=== PATIENT | female | born 1945 | race Caucasian/White ===

== ENCOUNTER → 2016-10-11 | Outpatient (CLI) | payer OTHER ==
[~2016-10-11] MED LIST: CALC600T9 PO; OXYB5TAB74 PO; PRED1SUS3 OPL; SIMV20TA2 PO
[2016-10-11 09:43] LABS: BASO % 0.2 %; BASO ABS # 0.01 K/uL (0-0.2); COMPLETE YES; EOS % 1.6 %; HEMATOCRIT 40.6 % (37-47); IG% 0.2 %; LYMPH % 23.9 %; LYMPH ABS # 1.02 K/uL (1.2-3.4); MEAN CELL VOLUME 88.6 fL (80-100); MEAN CORPUSCULAR HEMOGLOBIN 30.3 pg (25-34); MEAN CORPUSCULAR HGB CONC 34.2 g/dl (32-36); MEAN PLATELET VOLUME 9.6 fL (7.4-10.4); MONO % 10.3 %; NEUT % 63.8 %; PLATELET COUNT 218 K/uL (130-400); RED BLOOD COUNT 4.58 M/uL (4.2-5.4); WHITE BLOOD COUNT 4.26 K/uL (4.8-10.8)
[2016-10-11 09:50] LABS: ALT/SGPT 21 U/L (12-78); BLOOD UREA NITROGEN 18 mg/dl (7-18); CALCIUM 8.8 mg/dl (8.5-10.1); CARBON DIOXIDE 26 mmol/L (21-32); CHLORIDE 110 mmol/L (98-107); CHOLESTEROL 172 mg/dl (0-200); GLUCOSE 93 mg/dl (70-99); POTASSIUM 3.5 mmol/L (3.5-5.1); SODIUM 144 mmol/L (136-145)
[2016-10-11 09:53] LABS: ALB/GLOB RATIO 1.2 (0.9-2); ALKALINE PHOSPHATASE 78 U/L (45-117); AST/SGOT 19 U/L (15-37); CHOLESTEROL/HDL RATIO 2.8; HDL CHOLESTEROL 62 mg/dl; LDL CHOLESTEROL CALCULATED 88 mg/dl; TRIGLYCERIDES 109 mg/dl (0-150); VERY LOW DENSITY LIPOPROT CALC 22 mg/dl
== END | disposition home or self-care (01) ==
LOC: C.LAB1850 08:13
PROVIDERS: ATTEND Internal Medicine
DX: Z11.59 Encounter for screening for other viral diseases (principal); G62.9 Polyneuropathy, unspecified; E78.5 Hyperlipidemia, unspecified

== ENCOUNTER → 2017-06-25 | Day surgery (SDC) | payer OTHER ==
[2017-06-08 10:05] VITALS: BMI 28.0
[~2017-06-25] VITALS: Ht 167.6 cm; Wt 80.5 kg
[~2017-06-25] MED LIST changes: +ATROPINE SULFATE 0.1 MG/ML 5ML SYR IV PRN; +DTR/5 PO; +EpHEDrine SULFATE INJ 50 MG/ML AMP IV PRN; +LIDOCAINE HCL 2% 2 ML VIAL (20MG/ML) ONE; -OXYB5TAB74 PO; -PRED1SUS3 OPL; +PROPOFOL IV EMULSION 10 MG/ML 20 ML VIAL IV ONE; +SODIUM CHLORIDE 0.9% 500ML 500 ML IV ONE
[2017-06-25 12:04] VITALS: Ht 167.6 cm; Wt 80.5 kg
[2017-06-25 12:08] VITALS: TEMP 36.8
--- NOTE | 2017-06-25 12:51 | Endo History and Physical ---
History & Physical Date of Service: Jun 25, 2017. Chief Complaint: SCREENING Referring Physician: DR SHARP History of Present Illness 71 yo CF who presents for screening colonoscopy. Past Medical History High Cholesterol Past Surgical History Hx Cardiac Surgery: No Hx Internal Defibrillator: No Hx Pacemaker: No Hx Abdominal Surgery: No Hx of Implantable Prosthesis: No Hx Post-Op Nausea and Vomiting: No Hx Cancer Surgery: No Hx Thoracic Surgery: No Hx Orthopedic: No Hx Urinary Tract Surgery: No Family History None Social History Smoking Status: Never Smoker Hx Substance Use: No Hx Alcohol Use: No Allergies Coded Allergies: Latex1 -Allergic Contact Dermititis (Verified Allergy, Unknown, NOSE ITCHING ON CONTACT WITH LATEX GLOVES AT DENTIST, 06/25/17) per pt allergy is questionable had some itching around her nose while at a dental appt. and was told it was a latex allergy Tramadol (Verified Adverse Reaction, Unknown, DIZZY, 06/25/17) Current Medications Reported Home Medications Medications Dose Route/Sig Max Daily Dose Days Date Category Calcium + D (Calcium Carbonate-Vitamin D) 1 Tab Tab PO QAM 03/02/15 Reported Ditropan (Oxybutynin Chloride) 5 Mg Tab 5 Mg PO BID 03/02/15 Reported Zocor (Simvastatin) 20 Mg Tab 20 Mg PO QPM 03/02/15 Reported Vital Signs Weight (Kilograms): 80.45 Height (Feet): 5 Height (Inches): 6 Date Time Temp Pulse Resp B/P (MAP) Pulse Ox O2 Delivery O2 Flow Rate FiO2 06/25/17 12:08 36.8 81 18 151/90 (110) 95 Room Air Physical Exam General Appearance: WD/WN, no apparent distress Respiratory/Chest: Auscultation: breath sounds normal Cardiovascular: Heart Auscultation: RRR Abdomen: Bowel Sounds: normal Inspection & Palpation: soft, non-distended, no tenderness, guarding & rebound Assessment and Plan Assessment: 71 yo CF who presents for screening colonoscopy. Plan: Proceed with colonoscopy.
--- NOTE | 2017-06-25 13:31 | GI REPORT ---
Procedure Date: 06/25/2017 12:25 PM Procedure: Colonoscopy Indications: Screening for colorectal malignant neoplasm Medicines: Monitored Anesthesia Care Complications: No immediate complications. Estimated Blood Loss: Estimated blood loss: none. Procedure: Pre-Anesthesia Assessment: - Prior to the procedure, a History and Physical was performed, and patient medications and allergies were reviewed. The patient's tolerance of previous anesthesia was also reviewed. The risks and benefits of the procedure and the sedation options and risks were discussed with the patient. All questions were answered, and informed consent was obtained. Prior Anticoagulants: The patient has taken no previous anticoagulant or antiplatelet agents. ASA Grade Assessment: II - A patient with mild systemic disease. After reviewing the risks and benefits, the patient was deemed in satisfactory condition to undergo the procedure. After I obtained informed consent, the scope was passed under direct vision. Throughout the procedure, the patient's blood pressure, pulse, and oxygen saturations were monitored continuously. The scope was introduced through the anus and advanced to the terminal ileum. The scope was introduced through the and advanced to. The colonoscopy was performed with moderate difficulty due to restricted mobility of the colon, a redundant colon and significant looping. Successful completion of the procedure was aided by changing the patient to a supine position and withdrawing the scope and replacing with the pediatric colonoscope. The patient tolerated the procedure well. The quality of the bowel preparation was good. The terminal ileum, ileocecal valve, appendiceal orifice, and rectum were photographed. Findings: The perianal and digital rectal examinations were normal. Multiple small-mouthed diverticula were found in the sigmoid colon. Non-bleeding internal hemorrhoids were found during retroflexion. The hemorrhoids were small. Impression: - Diverticulosis in the sigmoid colon. - Non-bleeding internal hemorrhoids. - No specimens collected. Recommendation: - Resume previous diet. - Continue present medications. - No repeat colonoscopy due to age and the absence of advanced adenomas. - Return to primary care physician as previously scheduled. Sabas Eden, DO 06/25/2017 1:31:13 PM This report has been signed electronically. Note Initiated On: 06/25/2017 12:25 PM I attest to the content of the Intraoperative Record and orders documented therein, exceptions below
--- NOTE | 2017-06-25 13:45 | Anesthesiology Progress Note ---
Anesthesia Post Op Note Date & Time Jun 25, 2017 at 13:45 Vital Signs Pain Intensity: 0 Vital Signs Past 12 Hours Date Time Temp Pulse Resp B/P (MAP) Pulse Ox O2 Delivery O2 Flow Rate FiO2 06/25/17 13:42 73 20 105/80 (88) 96 Room Air 06/25/17 13:37 76 20 99/55 (70) 93 Room Air 06/25/17 13:31 81 18 96/59 (71) 93 Room Air 06/25/17 12:08 36.8 81 18 151/90 (110) 95 Room Air Notes Mental Status: alert / awake / arousable, participated in evaluation Pt Amnestic to Procedure: Yes Nausea / Vomiting: adequately controlled Pain: adequately controlled Airway Patency, RR, SpO2: stable & adequate BP & HR: stable & adequate Hydration State: stable & adequate Anesthetic Complications: no major complications apparent
[2017-06-25 13:51] VITALS: BP 100/72; PULSE 71; O2SAT 97
--- NOTE | 2017-06-25 13:59 | Discharge Instructions ---
Endoscopy Patient Instructions Date / Procedure(s) Performed Jun 25, 2017. Colonoscopy Allergy Information Coded Allergies: Latex1 -Allergic Contact Dermititis (Verified Allergy, Unknown, NOSE ITCHING ON CONTACT WITH LATEX GLOVES AT DENTIST, 06/25/17) per pt allergy is questionable had some itching around her nose while at a dental appt. and was told it was a latex allergy Tramadol (Verified Adverse Reaction, Unknown, DIZZY, 06/25/17) Discharge Date / Findings Jun 25, 2017. Diverticulosis Internal hemorrhoids Medication Instructions OK to resume all medications today as prescribed Reported Home Medications Medications Dose Route/Sig Max Daily Dose Days Date Category Calcium + D (Calcium Carbonate-Vitamin D) 1 Tab Tab PO QAM 03/02/15 Reported Ditropan (Oxybutynin Chloride) 5 Mg Tab 5 Mg PO BID 03/02/15 Reported Zocor (Simvastatin) 20 Mg Tab 20 Mg PO QPM 03/02/15 Reported Provider Instructions Activity Restrictions - No exercising or heavy lifting for 24 hours. - Do not drink alcohol the day of the procedure. - Do not drive a car or operate machinery until the day after the procedure. - Do not make any important decisions or sign important papers in 24 hours after the procedure. Following Day: - Return to full activity which may include returning to work/school. Diet Start your diet with liquids and light foods (jello, soup, juice, toast). Then eat your usual diet if not nauseated. Treatment For Common After Affects For mild abdominal pain, bloating, or excessive gas: - Rest - Eat lightly - Lie on right side Follow-Up Information Follow-up with DR SHARP as scheduled Anesthesia Information What You Should Know You have had a procedure that required some medicine to reduce anxiety and discomfort. This treatment is called moderate sedation. After receiving the treatment, you may be sleepy, but you will be able to breathe on your own. The effects of the treatment may last for several hours. Follow these instructions along with Activity/Diet recommendations noted above: * Do NOT do anything where dizziness or clumsiness would be dangerous. * Rest quietly at home today, then you can be up and about tomorrow. * Have a responsible person stay with you the rest of today. * You may have had an I.V. today. If so, you may take the dressing off later today. Recommendations Call your doctor if: * Trouble breathing * Continuous vomiting for more than 24 hours * Temperature above 101 degrees * Severe abdominal pain or bloating * Pain not relieved by pain medicine ordered * There is increased drainage or redness from any incision * A large amount of rectal bleeding greater than 2-3 tablespoons. (If you had a polyp/s removed or have hemorrhoids, a small amount of blood - from the rectum is to be expected.) * You have any unanswered questions or concerns. IN THE EVENT OF A SERIOUS EMERGENCY, GO TO THE NEAREST EMERGENCY ROOM Your discharge instructions were prepared by provider Sabas Eden. Patient Instructions Signature Page Manjit Haque Patient (or Guardian) Signature/Date: I have read and understand the instructions given to me by my caregivers. Caregiver/RN/Doctor Signature/Date: The above-named patient and/or guardian has received patient instructions on this date. + Original Patient Signature Page (only) stays with chart. Please make copy for patient.
== END | disposition home or self-care (01) ==
LOC: C.GI 11:04
PROVIDERS: ATTEND Internal Medicine
DX: Z12.11 Encounter for screening for malignant neoplasm of colon (principal); E78.00 Pure hypercholesterolemia, unspecified; K57.30 Diverticulosis of large intestine without perforation or abscess without bleeding; K64.8 Other hemorrhoids; Z91.040 Latex allergy status; Z88.8 Allergy status to other drugs, medicaments and biological substances

== ENCOUNTER 2021-04-26 08:17 | Inpatient (IN) ==
--- NOTE | 2021-04-26 08:40 | Emergency Department Note ---
Impression & Plan Acute lumbar radiculopathy, Low back pain ED Provider Note NAME: LEVON GILBERT AGE: 75 SEX: F : 1945 ARRIVES VIA: Walk-In INFORMANT: Patient, ED PROVIDER(S): Frank Ireland DO CHIEF COMPLAINT: Back pain HPI: The patient is a 75-year-old female who presented to the emergency department for an evaluation of back pain. The patient noticed back pain over the last few weeks. She was seen in our emergency department recently and diagnosed with lumbar disc disease. She was felt to have a surgical finding on MRI and was followed up with the orthopedic spinal specialist. The patient has been having problems scheduling her surgery. She started noticing worsening pain and pain radiating to her right leg. This became much worse over the last 24 hours. She presented to the emergency department today for further e valuation. She did take a pain pill prior to coming to the emergency department. She states her pain is somewhat improved. She states pain worsens when she tries ambulate. She notices specific pain going into her right leg and weakness in her right foot. She denies having any numbness in the saddle region. She notices no bowel or bladder incontinence. She denies having any abdominal pain or chest pain. The patient states that she has been compliant with her usual medications. She is not on any blood thinners. She states the pain is moderate at this time. She states that is somewhat relieved with lying still. ROS: See above HPI for pertinent positives & negatives. A total of 10 systems reviewed and were otherwise negative. PAST MEDICAL HISTORY: See Below PAST SURGICAL HISTORY: See Below FAMILY HISTORY: See Below SOCIAL HISTORY: See Below HOME MEDICATIONS: See Below ALLERGIES: See Below VITALS: See Below PHYSICAL EXAMINATION: GENERAL: The patient is awake and alert. She is somewhat anxious appearing and uncomfortable. EYES: The conjunctivae are clear. The pupils are round and reactive. EARS, NOSE, MOUTH AND THROAT: The nose is without any evidence of any deformity. NECK: The neck is nontender and supple. RESPIRATORY: Normal respiratory effort is noted there is no evidence of wheezing rhonchi or rales CARDIOVASCULAR: Regular rate and rhythm noted there no murmurs rubs or gallops normal S1 normal S2. GASTROINTESTINAL: The abdomen is soft. Abdomen is nontender. BACK: No midline tenderness was appreciated. Range of motion appears intact but was painful especially with flexion and extension of the lumbar spine. MUSCULOSKELETAL/EXTREMITIES: There is no evidence of gross deformity full range of motion is noted in the hips and shoulders. SKIN: There is no obvious evidence of any rash. There are no petechiae, pallor or cyanosis noted. NEUROLOGIC: Patient is awake alert and oriented x3 strength is symmetric patellar reflexes are 2+ bilaterally. Achilles tendon reflexes are 1+ bilaterally. Great toe raise was asymmetric with diminished toe raise noted in the right great toe. MEDICAL DECISION MAKING: The patient is a 75-year-old female who presented to the emergency department for an evaluation of back pain. The patient has known back pain which is caused by lumbar disc disease. She started having worsening symptoms. She was scheduled to have evaluation and possible surgical intervention by her primary orthopedic spinal specialist. She was failing outpatient therapy. She presented to the emergency department because of worsening symptoms. I discussed her case with her primary orthopedic spinal specialist. She was felt to be a good candidate for inpatient management and then further evaluation for surgical intervention while in the hospital. The patient was agreeable with this plan. Triage Nursing notes reviewed. Prior medical records reviewed Vital Signs: reviewed and remarkable for no significant abnormalities Differential diagnosis: Musculoskeletal, disc herniation, fracture, metastatic disease, cord compression, discitis, sciatica, cauda equina, infection, aortic disease, renal colic, gastrointestinal, as well as other pathologies. ER treatment provided: See below Diagnostics interpreted by me: ECG: none Laboratory studies: As stated above and show below. Imaging studies: See below Consultation(s): I discussed this case with Dr. Stone who is the patient's primary orthopedic spinal specialist. Past Med/Surg History Medical History (Updated 04/27/21 @ 10:31 by Denise Rodríguez PA-C) Arthritis Depression Eczema Hx of fracture of ankle (~2013) Hyperlipidemia Lumbar radiculopathy Mild cervical dysplasia Neuropathy Polyneuropathy Spinal stenosis Stress incontinence Surgical History History of cataract surgery RT/LEFT History of tooth extraction Hx of colonoscopy Family History Daughter Anxiety Mother Osteoporosis Dementia Father Diabetes Grandfather (Maternal) Osteoporosis Other Breast cancer Myocardial infarction No family history of adverse response to anesthesia Denies family history of Ovarian cancer Colorectal cancer Social History Smoking Status: Never smoker Second Hand Exposure: No; Hx Alcohol Use: Yes Alcohol type: wine Hx Substance Use: No Preferred Language: Malawian Communication Ability: Effective Sealer Aircraft Required: No Beliefs That Will Affect Care: None marital status: Single Current Living Situation: Alone Current Living Situation Comment: Since Mar, living with friend, Julian, for convenience of 1 floor home current occupational status: retired Other Information That Helps Us Care for You: No Feels Safe at Home: Yes Safety Concerns: Feels Safe At This Time Dental Care, Regularly: Yes Physical Activity Frequency: 1-2 Times per Week Seatbelt Use: always Sunscreen Use: Yes Assistive Devices: Walker Allergies Allergies Allergy/AdvReac Type Severity Reaction Status Date / Time latex Allergy Mild NOSE Verified 04/26/21 09:21 ITCHING ON CONTACT WITH LATEX GLOVES AT DENTIST tramadol Allergy Mild DIZZY Verified 04/26/21 09:21 Home Meds Home Medications Medication Instructions Recorded Confirmed calcium carbonate 500 mg calcium 500 mg PO QAM tab 10/24/18 04/26/21 (1,250 mg) tablet ibuprofen 200 mg tablet 200 mg PO Q6H PRN 04/26/21 04/26/21 simvastatin 20 mg tablet (Zocor) 20 mg PO HS 04/26/21 04/26/21 Previous Rx's Medication Instructions Recorded oxybutynin chloride 5 mg tablet 5 mg PO BID #180 tab 11/02/20 hydrocodone 5 mg-acetaminophen 325 1 tab PO Q6H PRN #30 tab 04/18/21 mg tablet Results & Data (ED) Vital Signs Vital Signs - 24 hr 04/26/21 08:22 04/26/21 08:57 04/26/21 10:00 Temperature 36.8 C Temperature Source Temporal Artery Scan Pulse Rate 94 H Pulse Rate [Right Finger] 87 Pulse Rhythm [Right Finger] Regular Pulse Strength [Right Finger] Normal Respiratory Rate 18 18 Respiratory Effort / Characteristics Non-Labored Spontaneous Non-Labored Spontaneous Respiratory Depth Normal Normal Respiratory Pattern Regular Blood Pressure 155/87 H Blood Pressure [Right Arm] 148/79 H Blood Pressure Mean 109 Blood Pressure Mean [Right Arm] 102 Pulse Oximetry 98 98 Oxygen Delivery Method Room Air Room Air Room Air Sepsis Recent Fever Within 48 Hours No Sepsis New/Unexplained Change in Mental Status No Sepsis Action Taken by Nursing No Action Required Home Medications Current Medication List: was personally reviewed by me Laboratory Data Attestation: I reviewed the patient's lab results. Result diagrams: 04/26/21 08:53 04/26/21 08:53 Lab Results 04/26/21 04/26/21 04/26/21 Range/Units 08:53 08:53 08:53 WBC 5.95 (4.8-10.8) K/uL RBC 4.49 (4.2-5.4) M/uL Hgb 13.8 (12.0-16.0) g/dL Hct 40.2 (37-47) % MCV 89.5 (80-100) fL MCH 30.7 (25-34) pg MCHC 34.3 (32-36) g/dL RDW Std Deviation 47.1 H (36.4-46.3) fL RDW Coeff of Amanda 14.3 (11.5-14.5) % Plt Count 257 (130-400) K/uL MPV 9.2 (7.4-10.4) fL Immature Gran % (Auto) 0.2 % Neut % (Auto) 70.4 % Lymph % (Auto) 15.1 % Allen % (Auto) 12.1 % Eos % (Auto) 2.0 % Baso % (Auto) 0.2 % Neut # (Auto) 4.19 (1.4-6.5) K/uL Lymph # (Auto) 0.90 L (1.2-3.4) K/uL Allen # (Auto) 0.72 H (0.11-0.59) K/uL Eos # (Auto) 0.12 (0-0.5) K/uL Baso # (Auto) 0.01 (0-0.2) K/uL Immature Gran # (Auto) 0.01 (0.00-0.02) K/uL PT 9.8 (9.0-12.0) Seconds INR 1.0 (0.9-1.1) APTT 24.7 (21.0-31.0) Seconds PTT Ratio 0.9 Sodium 137 (136-145) mmol/L Potassium 3.7 (3.5-5.1) mmol/L Chloride 106 (98-107) mmol/L Carbon Dioxide 25 (21-32) mmol/L Anion Gap 6.0 (3-11) BUN 20 H (7-18) mg/dl Creatinine 0.95 (0.6-1.2) mg/dl Est Cr Clr Drug Dosing Not Reportable Est GFR ( Amer) 68.9 ml/min Est GFR (Non-Af Amer) 59.4 ml/min BUN/Creatinine Ratio 21.0 H (10-20) Glucose 107 H (70-99) mg/dl Calcium 9.4 (8.5-10.1) mg/dl Total Bilirubin 0.5 (0.2-1) mg/dl AST 15 (15-37) U/L ALT 18 (12-78) Alkaline Phosphatase 96 (45-117) U/L Total Protein 6.6 (6.4-8.2) gm/dl Albumin 3.4 (3.4-5.0) gm/dl Globulin 3.2 (2.5-4.0) gm/dl Albumin/Globulin Ratio 1.1 (0.9-2) Lipase 93 (73-393) U/L SARS-CoV-2, RNA, NAAT (NEGATIVE) 04/26/21 Range/Units 08:53 WBC (4.8-10.8) K/uL RBC (4.2-5.4) M/uL Hgb (12.0-16.0) g/dL Hct (37-47) % MCV (80-100) fL MCH (25-34) pg MCHC (32-36) g/dL RDW Std Deviation (36.4-46.3) fL RDW Coeff of Amanda (11.5-14.5) % Plt Count (130-400) K/uL MPV (7.4-10.4) fL Immature Gran % (Auto) % Neut % (Auto) % Lymph % (Auto) % Allen % (Auto) % Eos % (Auto) % Baso % (Auto) % Neut # (Auto) (1.4-6.5) K/uL Lymph # (Auto) (1.2-3.4) K/uL Allen # (Auto) (0.11-0.59) K/uL Eos # (Auto) (0-0.5) K/uL Baso # (Auto) (0-0.2) K/uL Immature Gran # (Auto) (0.00-0.02) K/uL PT (9.0-12.0) Seconds INR (0.9-1.1) APTT (21.0-31.0) Seconds PTT Ratio Sodium (136-145) mmol/L Potassium (3.5-5.1) mmol/L Chloride (98-107) mmol/L Carbon Dioxide (21-32) mmol/L Anion Gap (3-11) BUN (7-18) mg/dl Creatinine (0.6-1.2) mg/dl Est Cr Clr Drug Dosing Est GFR ( Amer) ml/min Est GFR (Non-Af Amer) ml/min BUN/Creatinine Ratio (10-20) Glucose (70-99) mg/dl Calcium (8.5-10.1) mg/dl Total Bilirubin (0.2-1) mg/dl AST (15-37) U/L ALT (12-78) Alkaline Phosphatase (45-117) U/L Total Protein (6.4-8.2) gm/dl Albumin (3.4-5.0) gm/dl Globulin (2.5-4.0) gm/dl Albumin/Globulin Ratio (0.9-2) Lipase (73-393) U/L SARS-CoV-2, RNA, NAAT NEGATIVE (NEGATIVE) Administered Medications Acetaminophen (Acetaminophen 500 Mg Tab) 1,000 mg PO Q8H PRN PRN Reason: MILD Pain Scale 1,2,3 & Pre PT Stop: 05/26/21 11:33 Last Admin: 04/27/21 00:59 Dose: 1,000 mg Documented by: [id number] Admin: 04/26/21 13:48 Dose: 1,000 mg Documented by: [id number] Calcium Carbonate (Calcium Carbonate 1250mg Tab) 1,250 mg PO QAM [facility] Stop: 05/27/21 08:59 Last Admin: 04/27/21 08:20 Dose: 1,250 mg Documented by: [id number] Sodium Chloride (Nss 1000ml) 1,000 mls @ 75 mls/hr IV .[id number] [facility] Stop: 05/26/21 11:33 Last Admin: 04/27/21 00:56 Dose: 75 mls/hr Documented by: [id number] Infusion: 04/27/21 00:56 Dose: 75 mls/hr Documented by: [id number] Admin: 04/26/21 11:54 Dose: 75 mls/hr Documented by: [id number] Oxybutynin Chloride (Oxybutynin Chloride 5 Mg Tab) 5 mg PO BID CANDICE Stop: 05/26/21 20:59 Last Admin: 04/27/21 08:20 Dose: 5 mg Documented by: [id number] Admin: 04/26/21 20:07 Dose: 5 mg Documented by: [id number] Oxycodone HCl (Oxycodone Hcl Ir 5 Mg Tab (Immediate Release)) 5 - 10 mg PO Q4H PRN PRN Reason: mod to severe pain Stop: 05/10/21 11:33 Last Admin: 04/27/21 06:10 Dose: 5 mg Documented by: [id number] Simvastatin (Simvastatin 20 Mg Tab) 20 mg PO HS CANDICE Stop: 05/26/21 20:59 Last Admin: 04/26/21 20:07 Dose: 20 mg Documented by: [id number] Discharge Plan Visit Data Chief Complaint: Back Injury/Pain Stated Complaint: LOWER BACK PAIN RADIATING TO R LEG ED Provider: Frank Ireland Discharge Problem: Acute lumbar radiculopathy, Low back pain Patient Disposition: Admitted As Inpatient Discharge Instructions Interventions: ED Discharge Assessment Last Done: 04/26/21 11:06 Discharge Problem: Low back pain Qualifiers: Chronicity: acute Back pain laterality: unspecified Sciatica presence: unspecified whether sciatica present Qualified Code(s): M54.50 - Low back pain, unspecified
[2021-04-26 09:08] LABS: Basophils # (auto) 0.01 K/uL (0-0.2); Basophils % (auto) 0.2 %; Eosinophils # (auto) 0.12 K/uL (0-0.5); Hematocrit (blood only) 40.2 % (37-47); Hemoglobin 13.8 g/dL (12.0-16.0); Immature Granulocytes # (auto) 0.01 K/uL (0.00-0.02); Immature Granulocytes % (auto) 0.2 %; Lymphocytes % (auto) 15.1 %; Mean Corpuscular Hemoglobin 30.7 pg (25-34); Mean Corpuscular Hgb Conc 34.3 g/dL (32-36); Mean Corpuscular Volume 89.5 fL (80-100); Mean Platelet Volume 9.2 fL (7.4-10.4); Monocytes # (auto) 0.72 K/uL (0.11-0.59); Monocytes % (auto) 12.1 %; Neutrophils # (auto) 4.19 K/uL (1.4-6.5); Neutrophils % (auto) 70.4 %; Platelet Count 257 K/uL (130-400); RDW Coefficient of Variation 14.3 % (11.5-14.5); RDW Standard Deviation 47.1 fL (36.4-46.3); Red Blood Count 4.49 M/uL (4.2-5.4); White Blood Count 5.95 K/uL (4.8-10.8)
[2021-04-26 09:18] LABS: Partial Thromboplastin Ratio 0.9; Partial Thromboplastin Time 24.7 Seconds (21.0-31.0); Prothrombin Time 9.8 Seconds (9.0-12.0)
[2021-04-26 10:04] LABS: Alanine Aminotransferase 18 (12-78); Albumin Level 3.4 gm/dl (3.4-5.0); Aspartate Aminotransferase 15 U/L (15-37); Blood Urea Nitrogen 20 mg/dl (7-18); Calcium 9.4 mg/dl (8.5-10.1); Carbon Dioxide 25 mmol/L (21-32); Chloride 106 mmol/L (98-107); Est GFR (African American) 68.9 ml/min; Est GFR (Non-African American) 59.4 ml/min; Glucose 107 mg/dl (70-99); Lipase 93 U/L (73-393); Potassium 3.7 mmol/L (3.5-5.1); Sodium 137 mmol/L (136-145)
[2021-04-26 10:07] LABS: Albumin Globulin Ratio 1.1 (0.9-2); Alkaline Phosphatase 96 U/L (45-117); Bilirubin,Total 0.5 mg/dl (0.2-1); Globulin 3.2 gm/dl (2.5-4.0); Total Protein 6.6 gm/dl (6.4-8.2)
--- NOTE | 2021-04-26 10:16 | History & Physical Report ---
Date of Service April 26, 2021 Assessment & Plan (1) Lumbar radiculopathy, acute: Plan: Patient has acute L4 compression fracture with underlying stenosis and facet cyst on the Right. Recommending an urgent decompression fusion L4-5 and kyphoplasty L4. History of Present Illness Chief Complaint: back and right leg pain Primary Care Provider: Frank Dubois MD 75 yo with severe back and right leg pain. Presents in wheelchair, unable to ambulate secondary to pain. Second visit to ER. Narcotics not helping with pain. Pain radiates from back down right leg to foot. Allergies Allergy/AdvReac Type Severity Reaction Status Date / Time latex Allergy Mild NOSE Verified 04/26/21 09:21 ITCHING ON CONTACT WITH LATEX GLOVES AT DENTIST tramadol Allergy Mild DIZZY Verified 04/26/21 09:21 Home Medications Medication Instructions Recorded Confirmed Type calcium carbonate 500 mg calcium 500 mg PO QAM tab 10/24/18 04/26/21 History (1,250 mg) tablet oxybutynin chloride 5 mg tablet 5 mg PO BID #180 tab 11/02/20 04/26/21 Rx hydrocodone 5 mg-acetaminophen 325 1 tab PO Q6H PRN #30 tab 04/18/21 04/26/21 Rx mg tablet ibuprofen 200 mg tablet 200 mg PO Q6H PRN 04/26/21 04/26/21 History simvastatin 20 mg tablet (Zocor) 20 mg PO HS 04/26/21 04/26/21 History Past Med/Surg History Medical History Arthritis Hx of fracture of ankle (~2013) Hyperlipidemia Lumbar radiculopathy Neuropathy Spinal stenosis Stress incontinence Surgical History History of cataract surgery RT/LEFT History of tooth extraction Hx of colonoscopy Family History Daughter Anxiety Mother Osteoporosis Dementia Father Diabetes Grandfather (Maternal) Osteoporosis Other Breast cancer Myocardial infarction No family history of adverse response to anesthesia Denies family history of Ovarian cancer Colorectal cancer Social History Smoking Status: Never smoker Second Hand Exposure: No; Hx Alcohol Use: Yes Alcohol type: wine Hx Substance Use: No Preferred Language: Luxembourgish Communication Ability: Effective Teacher Visually Impaired Required: No Beliefs That Will Affect Care: None marital status: Single Current Living Situation: Alone Current Living Situation Comment: [facility] (1 FLOOR HOME) current occupational status: retired Feels Safe at Home: Yes Dental Care, Regularly: Yes Physical Activity Frequency: 1-2 Times per Week Seatbelt Use: always Sunscreen Use: Yes Assistive Devices: Glasses and Walker Physical Exam Physical Exam: Patient in obvious distress. 4-/5 right dorsiflexion,5/5 bl quads. sensation diminished bl LE Results & Data ([facility]) Vital Signs (Past 12 Hours) Vital Signs Temp Pulse Resp BP Pulse Ox 04/26/21 08:22 36.8 C 94 H 18 155/87 H 98
[2021-04-26] MEDS ORDERED: ONDANSETRON INJ 2 MG/ML 2 ML VIAL IV PRN (11:34)
[2021-04-26] MEDS ORDERED: LORazepam 0.5 MG/1 ML VIAL IV PRN (11:34)
[2021-04-26] MEDS ORDERED: ACETAMINOPHEN 1,000 MG/100 ML VIAL IV PRN (11:34)
[2021-04-26] MEDS ORDERED: NALOXONE HCL 0.4 MG/1 ML VIAL/CARP IV PRN (11:34)
[2021-04-26] MEDS ORDERED: HYDROmorphone INJ 0.5 MG/0.5 ML SYR IV PRN (11:34)
[2021-04-26] MEDS ORDERED: diphenhydrAMINE Capsule 25 MG CAP PO PRN (11:34)
[2021-04-26] MEDS ORDERED: PROMETHAZINE HCL 12.5 MG in SODIUM CHLORIDE 0.9% 50 ML IV PRN (11:34)
[2021-04-26] MEDS ORDERED: LORazepam 0.5 MG TAB PO PRN (11:34)
[2021-04-26] MEDS ORDERED: MAGNESIUM HYDROXIDE SUSP 30 ML UDC PO PRN (11:34)
[2021-04-26] MEDS ORDERED: hydrOXYzine HCl 25 MG TAB PO PRN (11:34)
[2021-04-26] MEDS ORDERED: ALUMINUM/MAGNESIUM SUSP 30 ML UDC PO PRN (11:34)
[2021-04-26] MEDS ORDERED: METOCLOPRAMIDE HCL INJ 5 MG/ML 2 ML VIAL IV PRN (11:34)
[2021-04-26] MEDS ORDERED: ONDANSETRON 4 MG OD TAB PO PRN (11:34)
[2021-04-26] MEDS ORDERED: HYDROmorphone INJ 1 MG/ML SYRINGE IV PRN (11:34)
[2021-04-26] MEDS ORDERED: PATIENT'S HEIGHT AND/OR WEIGHT NEEDED SCH (11:45)
[2021-04-26] MEDS: SODIUM CHLORIDE 0.9% 1000ML 1,000 ML IV SCH (11:54)
--- NOTE | 2021-04-26 12:19 | Consultation ---
Date of Consultation April 26, 2021 Assessment & Plan (1) Lumbar radiculopathy, acute: Patient has been admitted by the orthopedic/spine service: Pain management as directed by primary service Timing of surgery as directed by primary service SCDs have been ordered for DVT prevention. Will defer further DVT measures as directed by the primary service based on bleeding risk perioperatively. (2) Hyperlipidemia: Maintain patient on her home dose of Zocor Supervising Physician Co-Signing Physician Notes Patient was seen and examined independently I discussed the case with Rashard VALDES I reviewed pertinent past medical social family history and also the plan of care and agree with the plan of care. Seen postoperatively after arriving L4-5 decompression fusion and L4-5 kyphoplasty. Patient prehospital state is fairly stable we will continue her home only home medication which deals with medical problem of Zocor. We will follow her for postoperative anemia and renal dysfunction Patient was seen pre operatively and she is stable without shortness of breath or chest pain, she is in good cardiovascular condition to have surgery. Patient stable medically at this time we will continue to follow for changes but in the postoperative period Any exceptions will be noted below History of Present Illness Reason for Consultation: Medical management Attending Physician: Shawn Stone, DO History of Present Illness This is a 72-year-old female who was admitted to [facility] by Dr. Stone of orthopedic/spine surgery. The patient is noted to have an acute L4 compression fracture with underlying spinal stenosis and a facet cyst on the right. Because of this problem Dr. Stone is recommending patient undergo decompression and fusion at the L4-L5 level along with a L4 kyphoplasty. Patient notes that over the past few weeks she is having worsening leg pain. She has been seen in the emergency department twice and was noted to have the above-noted findings. Patient says that she is having worsening pain rating down her right leg. Has become markedly worse over the past 24 hours. Patient does note that the pain is worse when she tries to walk and because of this her ambulation has been limited over the past several days. Patient denies any numbness in the saddle region. She has not lost control of her bowels or bladder. She denies any fevers, shakes, chills Patient notes that she leads an active lifestyle. She says that she is able to negotiate steps and inclines without chest pain or shortness of breath. She says she does not have any known history of cardiovascular disease. Patient is a lifetime non-smoker. Patient has had a chest x-ray on 04/21/2021 that showed no evidence of pneumonia or CHF. Patient is also had an EKG on 04/21/2021 that showed no changes indicative of acute ischemia.Labs were performed today were CBC revealed white blood cell count, hemoglobin, hematocrit, platelet count are all within normal range. Coagulation studies were all within normal range. Chemistry profile showed sodium, potassium, and creatinine are all within normal range. Patient has had a COVID test today which is also noted to be negative. At the time of my interview she was resting comfortably in bed in no distress. Allergies Allergy/AdvReac Type Severity Reaction Status Date / Time latex Allergy Mild NOSE Verified 04/26/21 09:21 ITCHING ON CONTACT WITH LATEX GLOVES AT DENTIST tramadol Allergy Mild DIZZY Verified 04/26/21 09:21 Home Medications Medication Instructions Recorded Confirmed Type calcium carbonate 500 mg calcium 500 mg PO QAM tab 10/24/18 04/26/21 History (1,250 mg) tablet oxybutynin chloride 5 mg tablet 5 mg PO BID #180 tab 11/02/20 04/26/21 Rx hydrocodone 5 mg-acetaminophen 325 1 tab PO Q6H PRN #30 tab 04/18/21 04/26/21 Rx mg tablet ibuprofen 200 mg tablet 200 mg PO Q6H PRN 04/26/21 04/26/21 History simvastatin 20 mg tablet (Zocor) 20 mg PO HS 04/26/21 04/26/21 History Patient History Medical History Arthritis Hx of fracture of ankle (~2013) Hyperlipidemia Lumbar radiculopathy Neuropathy Spinal stenosis Stress incontinence Surgical History History of cataract surgery RT/LEFT History of tooth extraction Hx of colonoscopy Family History Daughter Anxiety Mother Osteoporosis Dementia Father Diabetes Grandfather (Maternal) Osteoporosis Other Breast cancer Myocardial infarction No family history of adverse response to anesthesia Denies family history of Ovarian cancer Colorectal cancer Social History Smoking Status: Never smoker Second Hand Exposure: No; Hx Alcohol Use: Yes Alcohol type: wine Hx Substance Use: No Preferred Language: Romansh Communication Ability: Effective Preprint Analyst Required: No Beliefs That Will Affect Care: None marital status: Single Current Living Situation: Alone Current Living Situation Comment: Since Mar, living with friend, Julian, for convenience of 1 floor home current occupational status: retired Other Information That Helps Us Care for You: No Feels Safe at Home: Yes Safety Concerns: Feels Safe At This Time Dental Care, Regularly: Yes Physical Activity Frequency: 1-2 Times per Week Seatbelt Use: always Sunscreen Use: Yes Assistive Devices: Walker Review of Systems Constitutional: no fever and no chills Eyes: + corrective lenses Ear, Nose, Mouth, Throat: no hearing loss Respiratory: no cough and no dyspnea Cardiovascular: no chest pain Gastrointestinal: no abdominal pain Genitourinary: no dysuria Musculoskeletal: + back pain Integumentary: no rash Neurologic: no localized weakness Physical Exam Constitutional: well developed and well nourished; no acute distress Eyes: Wears glasses ENMT: Ears: no hearing impairment Mouth: no oropharynx abnormality Neck: trachea midline Respiratory: normal respiratory effort, lungs clear to auscultation Cardiovascular: Rate/Rhythm: regular rate and regular rhythm Gastrointestinal (Abdomen): Soft, nontender, nondistended Musculoskeletal: No calf pain Skin: no rashes Neurologic: Patient is able to move all 4 extremities not noted focal deficits. She is able to plantarflex and dorsiflex as well as extend both great toes without any known neurologic deficits Psychiatric: A+Ox3, euthymic affect Results & Data ([facility]) Vital Signs (Past 12 Hours) Vital Signs Temp Pulse Pulse Resp BP BP Pulse Ox 04/26/21 11:20 36.8 C 75 20 125/76 96 04/26/21 11:06 78 17 114/70 99 04/26/21 10:00 87 18 148/79 H 98 04/26/21 08:22 36.8 C 94 H 18 155/87 H 98 PG Care Time/CCT Total # of Minutes Spent Total Time Spent with Patient: Total time spent is greater than 50% in coordination of care (as documented) at patient's floor/unit and/or counseling patient: Coding Level of Care Code 02603 Inpt Consult Level 5 Diagnoses Lumbar radiculopathy, acute M54.16 Hyperlipidemia E78.5
[2021-04-26] MEDS: ACETAMINOPHEN 500 MG TAB PO PRN (13:48)
[2021-04-26] MEDS: OXYBUTYNIN CHLORIDE 5 MG TAB PO SCH (20:07)
[2021-04-26] MEDS: SIMVASTATIN 20 MG TAB PO SCH (20:07)
[2021-04-27] MEDS: SODIUM CHLORIDE 0.9% 1000ML 1,000 ML IV SCH ×4 (00:56→21:50)
[2021-04-27] MEDS: ACETAMINOPHEN 500 MG TAB PO PRN (00:59)
[2021-04-27] MEDS ORDERED: ceFAZolin 2000MG 2,000 MG/15 ML SYR IV SCH (06:00)
[2021-04-27] MEDS: oxyCODONE HCL IR 5 MG TAB (IMMEDIATE RELEASE) PO PRN (06:10)
[2021-04-27] MEDS: CALCIUM CARBONATE 1250MG TAB PO SCH (08:20)
[2021-04-27] MEDS: OXYBUTYNIN CHLORIDE 5 MG TAB PO SCH ×2 (08:20→21:49)
[2021-04-27] MEDS ORDERED: MEPERIDINE HCL 25 MG/ML CARP/VIAL IV PRN (08:54)
[2021-04-27] MEDS ORDERED: PHENYLEPHRINE 100MCG/ML 5ML SYR IV PRN (08:54)
[2021-04-27] MEDS ORDERED: ATROPINE SULFATE 0.1 MG/ML 10ML SYR IV PRN (08:54)
[2021-04-27] MEDS ORDERED: ONDANSETRON INJ 2 MG/ML 2 ML VIAL IV PRN ×2 (08:54→13:42)
[2021-04-27] MEDS ORDERED: HYDROmorphone INJ 1 MG/ML SYRINGE IV PRN ×2 (08:54→13:42)
[2021-04-27] MEDS ORDERED: LABETALOL HCL IV 5 MG/ML 20ML IV PRN (08:54)
[2021-04-27] MEDS ORDERED: fentaNYL citrate 100 MCG/2 ML VIAL IV PRN (08:54)
[2021-04-27] MEDS ORDERED: ePHEDrine sulfate 50 MG/ML AMP IV PRN (08:54)
--- NOTE | 2021-04-27 09:09 | Anesthesiology Consultation ---
Date of Service April 27, 2021 Assessment & Plan (1) Encounter for pre-operative examination: Chart Review Chart Review: Acceptable Risk for Surgery and Patient NOT seen in Pre Admission Testing Consults Requested none History Surgery Operation Date: 04/27/21 10:35 Proposed Procedures p L4-L5 Decompression Fusion L4 Kyphoplasty - Shawn Stone DO Height/Weight Height: 5 ft 6 in Weight: 76.5 kg Allergies Allergy/AdvReac Type Severity Reaction Status Date / Time latex Allergy Mild NOSE Verified 04/26/21 09:21 ITCHING ON CONTACT WITH LATEX GLOVES AT DENTIST tramadol Allergy Mild DIZZY Verified 04/26/21 09:21 Medications Home Medications Medication Instructions Recorded Confirmed Last Taken calcium carbonate 500 mg calcium 500 mg PO QAM tab 10/24/18 04/26/21 04/12/21 (1,250 mg) tablet oxybutynin chloride 5 mg tablet 5 mg PO BID #180 tab 11/02/20 04/26/21 04/26/21 hydrocodone 5 mg-acetaminophen 325 1 tab PO Q6H PRN #30 tab 04/18/21 04/26/21 04/26/21 07:30 mg tablet 1 tablet ibuprofen 200 mg tablet 200 mg PO Q6H PRN 04/26/21 04/26/21 Unknown simvastatin 20 mg tablet (Zocor) 20 mg PO HS 04/26/21 04/26/21 04/25/21 Active Medications Generic Name Dose Route Start Last Admin Trade Name Freq PRN Reason Stop Dose Admin Acetaminophen 1,000 mg 04/26/21 11:34 04/27/21 00:59 Acetaminophen 500 Mg Tab PO 05/26/21 11:33 1,000 mg Q8H PRN Administration MILD Pain Scale 1,2,3 & Pre PT Calcium Carbonate 1,250 mg 04/27/21 09:00 04/27/21 08:20 Calcium Carbonate 1250mg Tab PO 05/27/21 08:59 1,250 mg QAM CANDICE Administration Sodium Chloride 1,000 mls @ 75 mls/hr 04/26/21 11:34 04/27/21 00:56 Nss 1000ml IV 05/26/21 11:33 75 mls/hr .[id number] CANDICE Administration Oxybutynin Chloride 5 mg 04/26/21 21:00 04/27/21 08:20 Oxybutynin Chloride 5 Mg Tab PO 05/26/21 20:59 5 mg BID CANDICE Administration Oxycodone HCl 5 - 10 mg 04/26/21 11:34 04/27/21 06:10 Oxycodone Hcl Ir 5 Mg Tab (Immediate Release) PO 05/10/21 11:33 5 mg Q4H PRN Administration mod to severe pain Simvastatin 20 mg 04/26/21 21:00 04/26/21 20:07 Simvastatin 20 Mg Tab PO 05/26/21 20:59 20 mg HS CANDICE Administration NPO Date Last Intake of Fluids: 04/26/21 Time Last Intake of Fluids: 23:30 Date Last Intake of Solids: 05/07/21 Time Last Intake of Solids: 21:00 Past Medical History Medical History (Updated 04/27/21 @ 09:08 by Bertin Resendiz MD) Arthritis Depression Eczema Hx of fracture of ankle (~2013) Hyperlipidemia Lumbar radiculopathy Mild cervical dysplasia Neuropathy Polyneuropathy Spinal stenosis Stress incontinence Past Family History Family History Daughter Anxiety Mother Osteoporosis Dementia Father Diabetes Grandfather (Maternal) Osteoporosis Other Breast cancer Myocardial infarction No family history of adverse response to anesthesia Denies family history of Ovarian cancer Colorectal cancer Past Surgical History Surgical History History of cataract surgery RT/LEFT History of tooth extraction Hx of colonoscopy Social History Smoking Status: Never smoker Hx Alcohol Use: Yes Alcohol type: wine alcohol intake frequency: a few times a month Hx Substance Use: No substance use type: does not use Physical Exam Vital Signs Last Vital Signs Temp 36.5 C 04/27/21 07:54 Pulse 69 04/27/21 07:54 Resp 16 04/27/21 07:54 BP 164/81 H 04/27/21 07:54 Pulse Ox 97 04/27/21 07:54 Testing Laboratory Results 04/26/21 08:53 04/26/21 08:53 PT 9.8 Seconds (9.0-12.0) 04/26/21 08:53 INR 1.0 (0.9-1.1) 04/26/21 08:53 APTT 24.7 Seconds (21.0-31.0) 04/26/21 08:53 Electrocardiogram Date: 03/21/21 DICTATED BY:Terry Reeves MD Test Reason : Blood Pressure : / mmHG Vent. Rate : 076 BPM Atrial Rate : 076 BPM P-R Int : 206 ms QRS Dur : 094 ms QT Int : 402 ms P-R-T Axes : 078 069 047 degrees QTc Int : 452 ms Normal sinus rhythm Incomplete right bundle branch block Nonspecific ST abnormality No previous ECGs available Confirmed by Terry Reeves ([id number]) on 04/22/2021 6:46:39 AM Referred By: Shawn Stone Confirmed By:Terry Reeves Signed By: 04/22/21 0646 Chest X-Ray Date: 04/21/21 XR chest Pre-admission PA/Lat CLINICAL HISTORY: PAT back pain TECHNIQUE: AP and lateral frontal radiograph of the chest was obtained. Comparison: None available at the time of this dictation. FINDINGS: No lines and tubes are seen. The cardiomediastinal silhouette is normal. The lungs are clear. No evidence of pleural effusion or pneumothorax. IMPRESSION: No acute chest disease. ACT 112: Negative or not required by law. Electronically signed by: Oscar Badillo M.D. 04/21/2021 2:58 PM Dictated:04/21/21 1457 Transcribed: 04/21/21 145
[2021-04-27] MEDS ORDERED: fentaNYL citrate 100 MCG/2 ML VIAL ONE ×2 (09:12→12:29)
[2021-04-27] MEDS ORDERED: DEXAMETHASONE SOD INJ 4 MG/ML VIAL ONE (09:12)
[2021-04-27] MEDS ORDERED: ROCURONIUM BROMIDE 10 MG/ML 5 ML VIAL IV ONE (09:12)
[2021-04-27] MEDS ORDERED: GLYCOPYRROLATE 0.2 MG/ML VIAL ONE ×2 (09:12→11:16)
[2021-04-27] MEDS ORDERED: PROPOFOL IV EMULSION 10 MG/ML 20 ML VIAL IV ONE (09:12)
[2021-04-27] MEDS ORDERED: ONDANSETRON INJ 2 MG/ML 2 ML VIAL ONE (09:12)
--- NOTE | 2021-04-27 10:05 | History & Physical Bridge Note ---
Date of Service April 27, 2021 History & Physical Bridge Note I have examined the patient, reviewed the History & Physical and in the interval since the performance of the History & Physical I have noted the following changes of clinical significance: no changes noted
[2021-04-27] MEDS ORDERED: EPINEPHrine INJ 1 MG/ML AMP ONE (10:19)
[2021-04-27] MEDS ORDERED: BUPIVACAINE 0.25% 30 ML VIAL ONE (10:19)
[2021-04-27] MEDS ORDERED: BUPIVACAINE 0.5 % 5 MG/1 ML MPF 30ML VIAL ONE (10:23)
--- NOTE | 2021-04-27 10:32 | Hospitalist Progress Note ---
Date of Service April 27, 2021 Assessment & Plan (1) Acute lumbar radiculopathy: Plan: Patient scheduled for the OR today. Will continue to monitor postoperatively (2) Hyperlipidemia: Plan: continue Zocor (3) Urinary incontinence: Plan: continue oxybutynin (4) Elevated blood pressure reading: Plan: Patient is not on any home antihypertensives. Will continue to monitor postoperatively. Plan: Anticipate starting DVT prophylaxis per primary service. Admission and Anticipated Discharge Date Admission Date: April 26, 2021 Subjective 75-year-old admitted to [facility] by Dr. Stone. The patient is noted to have an acute L4 compression fracture with underlining spinal stenosis and facet cyst on the right. The patient is scheduled to undergo decompression and fusion of the L4-L5 level along with a L4 kyphoplasty. The patient has been having worsening pain radiating to her right leg over the past couple weeks. Pain is aggravated by movement. No bowel or bladder dysfunction. Upon discharge the patient will be staying with her significant other in a 1 floor house and she has a hospital bed. She denies any complaints today. Patient denies any chest pain, shortness of breath, cough or abdominal pain. Review of Systems Constitutional: no fever Ear, Nose, Mouth, Throat: no nasal congestion, no nasal discharge and no sore throat Respiratory: no cough and no dyspnea on exertion Cardiovascular: no chest pain, no palpitations and no edema Physical Exam Constitutional: well developed and well nourished; no acute distress Respiratory: normal respiratory effort, lungs clear to auscultation Cardiovascular: Rate/Rhythm: regular rate and regular rhythm Extremities: no edema Gastrointestinal (Abdomen): Inspection/Auscultation: abdomen normal to inspection and normal bowel sounds; abdomen not distended Results & Data Results & Data ([facility]) Vital Signs (Past 12 Hours) Vital Signs Temp Pulse Resp BP Pulse Ox 04/27/21 09:41 98.6 F 77 18 144/73 H 99 04/27/21 07:54 97.7 F 69 16 164/81 H 97 PG Care Time/CCT Total # of Minutes Spent Total Time Spent with Patient: Total time spent is greater than 50% in coordination of care (as documented) at patient's floor/unit and/or counseling patient: Coding Level of Care Code 52534 Inpt Consult Level 1 Diagnoses Acute lumbar radiculopathy M54.16 Hyperlipidemia E78.5 Urinary incontinence R32 Elevated blood pressure reading R03.0
[2021-04-27] MEDS ORDERED: KETOROLAC 30 MG/ML VIAL ONE (11:15)
[2021-04-27] MEDS ORDERED: NEOSTIGMINE METHYLSULFATE 1 MG/ML 10ML VIAL ONE (11:16)
[2021-04-27] MEDS ORDERED: ePHEDrine sulfate 50 MG/ML AMP ONE (11:33)
[2021-04-27] MEDS ORDERED: WATER, STERILE FOR INJ 10 ML VIAL ONE (11:33)
[2021-04-27] MEDS ORDERED: FLOSEAL HEMOSTATIC MATRIX 10ML TOP ONE (11:42)
[2021-04-27] MEDS ORDERED: IOPAMIDOL INJ 61% 15 ML VIAL INJ ONE (12:09)
--- NOTE | 2021-04-27 12:32 | Operative Report ---
Post Operative Report Pre & Post Diagnosis Operation Date: 04/27/21 10:35 Pre-Op Diagnosis: Lumbar Radiculopathy L4-L5 Spinal stenosis L4-5 Compression fracture L4 Post-Op Diagnosis: Same I identified the patient and participated in the time-out.: Yes Procedure Operation Date: 04/27/21 10:35 Actual Procedures #1 lumbar decompression with bilateral medial facetectomies and foraminotomies L3-L4 L4-5 per #2 posterior spinal fusion L4-L5. #3 placement posterior instrumentation L4-L5. #4 interbody fusion L4-L5. #5 placement of peek cage 12 x 22 mm at L4-5. #6 placement locally harvested morselized autograft in the posterior gutters. #7 placement infuse collagen sponge, master graft in the posterior lateral gutters and I factor in the interbody space. #8 kyphoplasty L4 vertebral body. Surgeon Shawn Stone DO Right Of Way Clearer Shae Merida Estimated Blood Loss 100 Findings Consistent with Post-Op Diagnosis Specimens None Indications This is a 75-year-old female presents with above-mentioned diagnosis after having marked decline in status she is here for urgent decompression fusion. Description of Procedure Patient was met with identified informed consent obtained. Patient was then taken to the operative suite underwent ablation placed in the prone position the Wan table atop the Russell frame. All bony prominences well-padded eyes inspected to ensure no external pressure placed upon the. This point the lumbar spine was prepped and draped in a sterile fashion. Sharp dissection with the assistance of Bovie cautery was performed down to and exposing the lamina transverse processes of L4 and L5. From a caudal to cephalad fashion complete laminectomy of L4 partial laminectomy of L3 was performed including bilateral medial facetectomies and foraminotomies addressing severe spinal stenosis. I then performed a kyphoplasty of L4 vertebral body. The Kyphon balloons were inserted by way of Kyphon trochars inflated under direct fluoroscopic visualization. I then inserted approximately 3 cc of Kyphon cement. It demonstrated excellent interdigitation within the vertebral body. After this was complete pedicle screws were placed in L4 bilaterally. I then placed pedicle screws bilaterally and L5 and also augmented fixation with cement. Appropriate sized troy was then placed. By way of a transforaminal approach on the right complete discectomy of L4-L5 was performed endplates curetted to subcortical bleeding bone and a 13 x 22 mm peek cage filled I factor tapped in position. The rods were then compressed locked into final position bilaterally. The transverse processes of L4 and L5 burred to subcortical being bone. Infuse collagen sponge master graft local autograft was placed in the posterior gutters. 15 round DEBBIE drain inserted. The incision was then closed with 1 Vicryl in the fascia 2-0 Vicryl subcutaneously and 4 Monocryl for final skin closure. Steri-Strip sterile dressings placed. Patient was then taken to PACU stable condition. Please note spinal cord monitoring was utilized at the procedure no changes noted. Lastly Shae Merida was present at the entire procedure involved in patient positioning complex portions of the surgery and final skin closure. I attest to the content of the Intraoperative Record and any orders documented therein. Any exceptions are noted below.
[2021-04-27] MEDS ORDERED: METOPROLOL TARTRATE 1 MG/ML VIAL IV ONE (12:48)
[2021-04-27] MEDS ORDERED: METOPROLOL TARTRATE 1 MG/ML VIAL IV STA (12:53)
--- NOTE | 2021-04-27 13:14 | Fluoroscopy Report ---
FL lumbar spine 2-3V CLINICAL HISTORY: L4-5 DECOMPRESSION/FUSION L4 KYPHOPLASTY TECHNIQUE: 2 views were obtained with the C-arm in the OR with the above procedure. Total fluoroscopy time was 66.1 seconds. Total skin dose was 65.5 by mGy. Comparison: None available at the time of this dictation. FINDINGS/IMPRESSION: Intraoperative images of L4-L5 decompression and fusion were obtained. Please correlate with intraoperative fluoroscopy and operative report. ACT 112: Negative or not required by law. Electronically signed by: Oscar Badillo M.D. 04/27/2021 1:13 PM
--- NOTE | 2021-04-27 13:15 | Anesthesiology Progress Note ---
Date of Service April 27, 2021 Anesthesia Post Procedure Vital Signs Vital Signs: Temp Pulse Pulse Pulse Pulse Resp BP 04/27/21 13:10 36.2 C L 76 20 04/27/21 13:00 76 20 04/27/21 12:55 108 H 123/79 04/27/21 12:50 109 H 16 04/27/21 12:42 36.0 C L 104 H 14 04/27/21 09:41 37 C 77 18 04/27/21 07:54 36.5 C 69 16 04/26/21 21:47 36.6 C 85 16 04/26/21 15:29 36.7 C 77 20 BP BP Pulse Ox 04/27/21 13:10 158/85 H 98 04/27/21 13:00 147/91 H 99 04/27/21 12:55 04/27/21 12:50 150/96 H 99 04/27/21 12:42 123/79 95 04/27/21 09:41 144/73 H 99 04/27/21 07:54 164/81 H 97 04/26/21 21:47 130/73 95 04/26/21 15:29 126/78 96 Pain Intensity Back: Pain Intensity: 2 Transfer of Care Handoff Completed per policy Notes Mental Status: alert / awake / arousable Patient Amnestic to Procedure: Yes Nausea / Vomiting: adequately controlled Pain: adequately controlled Airway Patency, RR, SpO2: stable & adequate BP & HR: stable & adequate Hydration State: stable & adequate Anesthetic Complications: no major complications apparent and Pt Satisfied with anesthetic care
[2021-04-27] MEDS ORDERED: bisacodyL 10 MG SUPP PR PRN (13:42)
[2021-04-27] MEDS ORDERED: PROMETHAZINE HCL 12.5 MG in SODIUM CHLORIDE 0.9% 50 ML IV PRN (13:42)
[2021-04-27] MEDS ORDERED: oxyCODONE HCL IR 5 MG TAB (IMMEDIATE RELEASE) PO PRN (13:42)
[2021-04-27] MEDS ORDERED: ACETAMINOPHEN 1,000 MG/100 ML VIAL IV PRN (13:42)
[2021-04-27] MEDS ORDERED: SOD PHOSPHATE/SOD BIPHOSPHATE ENEMA 132 ML BTL PR PRN (13:42)
[2021-04-27] MEDS ORDERED: ALUMINUM/MAGNESIUM SUSP 30 ML UDC PO PRN (13:42)
[2021-04-27] MEDS ORDERED: DO NOT ADMINISTER PNEUMOCOCCAL VACCINE PRN (13:42)
[2021-04-27] MEDS ORDERED: diphenhydrAMINE Capsule 25 MG CAP PO PRN (13:42)
[2021-04-27] MEDS ORDERED: LORazepam 0.5 MG TAB PO PRN (13:42)
[2021-04-27] MEDS ORDERED: ONDANSETRON 4 MG OD TAB PO PRN (13:42)
[2021-04-27] MEDS ORDERED: FAMOTIDINE 20 MG TAB PO PRN (13:42)
[2021-04-27] MEDS ORDERED: METOCLOPRAMIDE HCL INJ 5 MG/ML 2 ML VIAL IV PRN (13:42)
[2021-04-27] MEDS ORDERED: MAGNESIUM HYDROXIDE SUSP 30 ML UDC PO PRN (13:42)
[2021-04-27] MEDS ORDERED: DO NOT ADMINISTER FLU VACCINE PRN (13:42)
[2021-04-27] MEDS ORDERED: NALOXONE HCL 0.4 MG/1 ML VIAL/CARP IV PRN (13:42)
[2021-04-27] MEDS ORDERED: LORazepam 0.5 MG/1 ML VIAL IV PRN (13:42)
[2021-04-27] MEDS ORDERED: HYDROmorphone INJ 0.5 MG/0.5 ML SYR IV PRN (13:42)
[2021-04-27] MEDS ORDERED: ACETAMINOPHEN 500 MG TAB PO PRN (13:42)
[2021-04-27] MEDS ORDERED: hydrOXYzine HCl 25 MG TAB PO PRN (13:42)
[2021-04-27] MEDS: ceFAZolin 2000MG 2,000 MG/15 ML SYR IV SCH (19:07)
[2021-04-27] MEDS: DOCUSATE SODIUM/SENNA 50/8.6MG TAB PO SCH (21:48)
[2021-04-27] MEDS: SIMVASTATIN 20 MG TAB PO SCH (21:49)
[2021-04-28] MEDS: ceFAZolin 2000MG 2,000 MG/15 ML SYR IV SCH (02:30)
[2021-04-28] MEDS: POLYETHYLENE (MIRALAX) 17 GM PACK PO SCH ×3 (05:55→18:40)
[2021-04-28] MEDS: CALCIUM CARBONATE 1250MG TAB PO SCH (08:03)
[2021-04-28] MEDS: OXYBUTYNIN CHLORIDE 5 MG TAB PO SCH ×2 (08:03→20:54)
[2021-04-28 08:14] LABS: Basophils # (auto) 0.01 K/uL (0-0.2); Basophils % (auto) 0.1 %; Hematocrit (blood only) 34.7 % (37-47); Hemoglobin 11.8 g/dL (12.0-16.0); Immature Granulocytes # (auto) 0.02 K/uL (0.00-0.02); Immature Granulocytes % (auto) 0.1 %; Lymphocytes # (auto) 1.09 K/uL (1.2-3.4); Lymphocytes % (auto) 7.8 %; Mean Corpuscular Volume 88.3 fL (80-100); Mean Platelet Volume 9.1 fL (7.4-10.4); Monocytes # (auto) 0.89 K/uL (0.11-0.59); Monocytes % (auto) 6.4 %; Neutrophils # (auto) 11.93 K/uL (1.4-6.5); Neutrophils % (auto) 85.6 %; Platelet Count 274 K/uL (130-400); RDW Standard Deviation 45.6 fL (36.4-46.3); Red Blood Count 3.93 M/uL (4.2-5.4); White Blood Count 13.94 K/uL (4.8-10.8)
--- NOTE | 2021-04-28 08:19 | Orthopedic Progress Note ---
Date of Service April 28, 2021 Assessment & Plan (1) Lumbar radiculopathy: Plan: At this time would like to initiate physical therapy monitor her DEBBIE output hopefully discharge home this weekend. Admission and Anticipated Discharge Date Admission Date: April 26, 2021 Subjective Patient's back pain is controlled leg symptoms markedly improved Physical Exam Physical Exam: Patient appears comfortable. Is excellent strength testing lower extremities. Results & Data ([facility]) Vital Signs (Past 12 Hours) Vital Signs Temp Pulse Resp BP BP Pulse Ox 04/28/21 07:17 36.8 C 94 H 16 112/74 96 04/28/21 02:35 36.7 C 93 H 18 130/83 96 04/27/21 21:34 36.8 C 92 H 16 126/82 98
[2021-04-28 08:40] LABS: BUN Creatinine Ratio 24.3 (10-20); Creatinine Clr Calc Pharmacy 74.8 ml/min; Est GFR (African American) 99.6 ml/min; Potassium 3.6 mmol/L (3.5-5.1)
--- NOTE | 2021-04-28 09:58 | Hospitalist Progress Note ---
Date of Service April 28, 2021 Assessment & Plan (1) Acute lumbar radiculopathy: Plan: Patient is POD #1. Pain is controlled Will continue to monitor postoperatively (2) Hyperlipidemia: Plan: continue Zocor (3) Urinary incontinence: Plan: continue oxybutynin (4) Elevated blood pressure reading: Plan: Patient is not on any home antihypertensives. Blood pressure is stable today. Plan: DVT prophylaxis - currently on SCDs. Will check with orthopedics to see if they want Lovenox. Disposition - patient is currently stable post op and is going to start PT. Discharge per orthopedics. Check CBC and BMP tomorrow and 04/30/2021 Admission and Anticipated Discharge Date Admission Date: April 26, 2021 Subjective 75-year-old admitted to [facility] by Dr. Stone. The patient is noted to have an acute L4 compression fracture with underlining spinal stenosis and facet cyst on the right. The patient had decompression and fusion of the L4-L5 level along with a L4 kyphoplasty.Patient currently is denying pain. She is going to start PT today. Upon discharge the patient will be staying with her significant other in a 1 floor house and she has a hospital bed. She denies any complaints today. Patient denies any chest pain, shortness of breath, cough or abdominal pain. Labs: WBC 13.94, Hgb 11.8, Hct 34.7, platelet 274, creatinine 0.7 vital signs are stable. Review of Systems Constitutional: no fever Ear, Nose, Mouth, Throat: no nasal congestion, no nasal discharge and no sore throat Respiratory: no cough and no dyspnea on exertion Cardiovascular: no chest pain, no palpitations and no edema Musculoskeletal: denies pain at this time. Able to move legs. Physical Exam Constitutional: well developed and well nourished; no acute distress Respiratory: normal respiratory effort, lungs clear to auscultation Cardiovascular: Rate/Rhythm: regular rate and regular rhythm Extremities: no edema Gastrointestinal (Abdomen): Inspection/Auscultation: abdomen normal to inspection and normal bowel sounds; abdomen not distended Results & Data Results & Data ([facility]) Vital Signs (Past 12 Hours) Vital Signs Temp Pulse Resp BP BP Pulse Ox 04/28/21 07:17 98.2 F 94 H 16 112/74 96 04/28/21 02:35 98.1 F 93 H 18 130/83 96 PG Care Time/CCT Total # of Minutes Spent Total Time Spent with Patient: Total time spent is greater than 50% in coordination of care (as documented) at patient's floor/unit and/or counseling patient: Coding Level of Care Code 88656 Inpt Consult Level 2 Diagnoses Acute lumbar radiculopathy M54.16 Hyperlipidemia E78.5 Urinary incontinence R32 Elevated blood pressure reading R03.0
[2021-04-28] MEDS: dexAMETHasone 8 MG in SYRINGE 0 ML IV SCH (10:02)
[2021-04-28] MEDS ORDERED: bisacodyL 10 MG SUPP PR PRN (10:03)
[2021-04-28] MEDS: DOCUSATE SODIUM/SENNA 50/8.6MG TAB PO SCH (20:54)
[2021-04-28] MEDS: SIMVASTATIN 20 MG TAB PO SCH ×2 (20:54→21:25)
[2021-04-29] MEDS: POLYETHYLENE (MIRALAX) 17 GM PACK PO SCH ×4 (00:27→17:22)
[2021-04-29] MEDS: ACETAMINOPHEN 500 MG TAB PO PRN ×2 (04:46→20:46)
[2021-04-29 07:57] LABS: Hematocrit (blood only) 35.3 % (37-47); Hemoglobin 11.7 g/dL (12.0-16.0); Immature Granulocytes # (auto) 0.03 K/uL (0.00-0.02); Immature Granulocytes % (auto) 0.3 %; Lymphocytes # (auto) 1.13 K/uL (1.2-3.4); Lymphocytes % (auto) 11.1 %; Mean Corpuscular Hemoglobin 29.5 pg (25-34); Mean Corpuscular Hgb Conc 33.1 g/dL (32-36); Mean Corpuscular Volume 88.9 fL (80-100); Mean Platelet Volume 9.2 fL (7.4-10.4); Monocytes # (auto) 1.08 K/uL (0.11-0.59); Monocytes % (auto) 10.6 %; Neutrophils # (auto) 7.95 K/uL (1.4-6.5); Platelet Count 241 K/uL (130-400); RDW Coefficient of Variation 13.9 % (11.5-14.5); RDW Standard Deviation 45.6 fL (36.4-46.3); Red Blood Count 3.97 M/uL (4.2-5.4); White Blood Count 10.19 K/uL (4.8-10.8)
[2021-04-29] MEDS: CALCIUM CARBONATE 1250MG TAB PO SCH (08:08)
[2021-04-29] MEDS: OXYBUTYNIN CHLORIDE 5 MG TAB PO SCH ×2 (08:08→20:47)
[2021-04-29] MEDS: dexAMETHasone 8 MG in SYRINGE 0 ML IV SCH (08:09)
[2021-04-29 08:20] LABS: BUN Creatinine Ratio 32.9 (10-20); Calcium 8.7 mg/dl (8.5-10.1); Creatinine Clr Calc Pharmacy 68.9 ml/min; Est GFR (African American) 90.2 ml/min; Est GFR (Non-African American) 77.8 ml/min; Potassium 3.3 mmol/L (3.5-5.1)
--- NOTE | 2021-04-29 09:36 | Hospitalist Progress Note ---
Date of Service April 29, 2021 Assessment & Plan (1) Acute lumbar radiculopathy: Plan: Patient is POD #2. Pain is controlled Will continue to monitor postoperatively (2) Hyperlipidemia: Plan: continue Zocor (3) Urinary incontinence: Plan: continue oxybutynin (4) Elevated blood pressure reading: Plan: Patient is not on any home antihypertensives. Blood pressure is stable today. (5) Hypokalemia: Plan: Potassium slightly low at 3.3 today. No replacement at this time, but will repeat lab work 04/30/2021. Plan: DVT prophylaxis - currently on SCDs. Disposition - patient is currently stable post op and will continue PT. Discharge per orthopedics. Labs ordered for 04/30/2021 Admission and Anticipated Discharge Date Admission Date: April 26, 2021 Subjective 75-year-old admitted to [facility] by Dr. Stone. The patient is noted to have an acute L4 compression fracture with underlining spinal stenosis and facet cyst on the right. The patient had decompression and fusion of the L4-L5 level along with a L4 kyphoplasty.Patient is not very talkative today and states she did not sleep last night. Patient currently is denying back pain. She started PT yesterday. Upon discharge the patient will be staying with her significant other in a 1 floor house and she has a hospital bed. Labs: WBC 10.19, Hgb 11.7, Hct 35.3, platelet 271, creatinine 0.76 vital signs are stable. Review of Systems Constitutional: + fatigue; no fever Respiratory: no cough and no dyspnea on exertion Cardiovascular: no chest pain, no palpitations and no edema Musculoskeletal: as per Subjective / HPI denies pain at this time. Able to move legs. Physical Exam Constitutional: well developed and well nourished; no acute distress Respiratory: normal respiratory effort, lungs clear to auscultation Cardiovascular: Rate/Rhythm: regular rate and regular rhythm Extremities: no edema Gastrointestinal (Abdomen): Inspection/Auscultation: abdomen normal to inspect ion and normal bowel sounds; abdomen not distended Results & Data Results & Data ([facility]) Vital Signs (Past 12 Hours) Vital Signs Temp Pulse Resp BP Pulse Ox 04/29/21 07:38 97.7 F 76 18 118/64 96 04/28/21 22:30 98.2 F 97 H 18 142/80 H 95 PG Care Time/CCT Total # of Minutes Spent Total Time Spent with Patient: Total time spent is greater than 50% in coordination of care (as documented) at patient's floor/unit and/or counseling patient: Coding Level of Care Code 49740 Inpt Consult Level 2 Diagnoses Acute lumbar radiculopathy M54.16 Hyperlipidemia E78.5 Urinary incontinence R32 Elevated blood pressure reading R03.0 Hypokalemia E87.6
--- NOTE | 2021-04-29 13:28 | Orthopedic Progress Note ---
Date of Service April 29, 2021 Assessment & Plan (1) Acute lumbar radiculopathy: Plan: Patient is doing well postoperative day #2. We will continue with GI DVT prophylaxis. We will continue with physical therapy and ambulation and gait training. She is likely to be discharged home tomorrow with home care. Admission and Anticipated Discharge Date Admission Date: April 26, 2021 Subjective Patient seen bedside in room 355. She is doing better today. She had been up and walking with physical therapy. Her pain is well controlled. She has not yet had a bowel movement. She has some intermittent symptoms in the right leg but the pain overall is controlled. She denies any other numbness, tingling, paresthesias. Physical Exam Physical Exam: On exam she is alert and oriented. Her lower extreme motor exam reveals no focal Strength and sensation are both intact her gait is stable with a walker her abdomen soft nontender calves are supple and nontender. Results & Data ([facility]) Vital Signs (Past 12 Hours) Vital Signs Temp Pulse Resp BP Pulse Ox 04/29/21 07:38 36.5 C 76 18 118/64 96
[2021-04-29] MEDS ORDERED: POTASSIUM CHLORIDE CRTAB 20 MEQ TABCR PO STA ×2 (15:14→17:25)
[2021-04-29] MEDS: DOCUSATE SODIUM/SENNA 50/8.6MG TAB PO SCH (20:47)
[2021-04-29] MEDS: SIMVASTATIN 20 MG TAB PO SCH (20:48)
[2021-04-30] MEDS: POLYETHYLENE (MIRALAX) 17 GM PACK PO SCH ×2 (00:29→05:32)
--- NOTE | 2021-04-30 08:55 | Discharge Summary ---
Date of Service April 30, 2021 Admission HPI Per Admitting Provider 75 yo with severe back and right leg pain. Presents in wheelchair, unable to ambulate secondary to pain. Second visit to ER. Narcotics not helping with pain. Pain radiates from back down right leg to foot. Discharge Data Consultations 04/26/21 09:11 Consult Orthopedic Surgery Stat 04/26/21 11:57 Consult Hospitalist Routine Procedures Performed Operation Date: 04/27/21 10:35 Actual Procedures p L4-L5 Decompression Fusion with Application of Bone Morphogenetic Protein, L4 Kyphoplasty, Spinal Cord Monitoring(Not Applicable) - Shawn Stone, Hospital Course (1) Acute lumbar radiculopathy: Patient is a pleasant 75-year-old female who was admitted through the emergency room due to intractable pain as well as weakness in her legs. For this reason she was brought to the operating room and undergone a lumbar decompression and fusion from L3-L5. This was performed by Dr. Stone under general anesthesia. She tolerated the procedure well. She will the operating room a DEBBIE drain Levy in place and is transferred the orthopedic floor in stable condition. She was seen by physical therapy postop day #1 for ambulation and gait training. Throughout her hospital course her abdomen is has remained supple and nontender her calves remain supple and nontender. Postop day #3 she is deemed safe for home discharge. She is going to be going to a friend's house to help care for her. She is to lift nothing heavier than 5 to 7 pounds does not perform any full bending at the waist. She needs to keep her incision covered until there is no drainage once there is no drainage she may begin to shower. We will see her back in the office in approximately 2 weeks or sooner if she develops any increased pain, fever, chills, or drainage from the incisi on.
[2021-04-30] MEDS: CALCIUM CARBONATE 1250MG TAB PO SCH (09:04)
[2021-04-30] MEDS: OXYBUTYNIN CHLORIDE 5 MG TAB PO SCH (09:04)
[2021-04-30] MEDS: dexAMETHasone 8 MG in SYRINGE 0 ML IV SCH (09:04)
[2021-04-30 11:10] LABS: Eosinophils # (auto) 0.01 K/uL (0-0.5); Eosinophils % (auto) 0.1 %; Immature Granulocytes # (auto) 0.02 K/uL (0.00-0.02); Immature Granulocytes % (auto) 0.2 %; Lymphocytes # (auto) 0.66 K/uL (1.2-3.4); Lymphocytes % (auto) 6.6 %; Mean Corpuscular Hemoglobin 30.9 pg (25-34); Mean Corpuscular Hgb Conc 34.3 g/dL (32-36); Mean Corpuscular Volume 90.2 fL (80-100); Mean Platelet Volume 8.9 fL (7.4-10.4); Neutrophils # (auto) 8.58 K/uL (1.4-6.5); Neutrophils % (auto) 86.1 %; Platelet Count 250 K/uL (130-400); RDW Standard Deviation 46.5 fL (36.4-46.3); Red Blood Count 3.88 M/uL (4.2-5.4); White Blood Count 9.97 K/uL (4.8-10.8)
[2021-04-30 11:35] LABS: BUN Creatinine Ratio 29.2 (10-20); Calcium 8.6 mg/dl (8.5-10.1); Creatinine Clr Calc Pharmacy 54.5 ml/min; Est GFR (Non-African American) 58.7 ml/min; Potassium 3.4 mmol/L (3.5-5.1)
[2021-04-30] MEDS: oxyCODONE HCL IR 5 MG TAB (IMMEDIATE RELEASE) PO PRN (12:17)
== END 2021-04-30 14:13 | disposition home or self-care (01) | DRG 454 ==
LOC: ED 08:17 → 3W 11:06